=== PATIENT | female | born 1985 | race Caucasian/White ===

== ENCOUNTER 2017-02-12 16:09 | Emergency (ER) | payer BC ==
[2017-02-12] MEDS ORDERED: Ketorolac 60 MG/2 ML SDV IM ONE (16:41)
--- NOTE | 2017-02-12 17:17 | EDM.PDOC ---
ED HPI LOWER BACK PAIN/INJURY - General Chief Complaint: Back Pain or Injury Stated Complaint: BACK PAIN Time Seen by Provider: 02/12/17 16:09 Source of Information: Reports: Patient History Limitations: Reports: No limitations - History of Present Illness INITIAL COMMENTS - FREE TEXT/NARRATIVE: History of present illness: [31-year-old female presenting with complaints of mid back pain radiating down into her lower back and bilateral legs. Patient indicates that she has had this pain before, and that in fact it comes and goes seemingly for no reason. Patient indicates that she gets to where it is hard for her to bend or do her ADLs. Patient denies any impotence for exacerbations indicating that there has never been any trauma to her knowledge. Patient denies any loss of continence or retention of bowel or bladder with this pain; at any time including this event.] Review of systems: As per history of present illness and below otherwise all systems reviewed and negative. Past medical history: As per history of present illness and as reviewed below otherwise noncontributory. Surgical history: As per history of present illness and as reviewed below otherwise noncontributory. Social history: No reported history of drug or alcohol abuse. Family history: As per history of present illness and as reviewed below otherwise noncontributory. Physical exam: HEENT: Atraumatic, normocephalic, pupils reactive, negative for conjunctival pallor or scleral icterus, mucous membranes moist, throat clear, neck supple, nontender, trachea midline. Lungs: Clear to auscultation, breath sounds equal bilaterally, chest nontender. Heart: S1S2, regular, negative for clicks, rubs, or JVD. Abdomen: Soft, nondistended, nontender. Negative for masses or hepatosplenomegaly. Negative for costovertebral tenderness. Pelvis: Stable nontender. Genitourinary: Deferred. Rectal: Deferred. Extremities: Atraumatic, negative for cords or calf pain. Neurovascular unremarkable. Neuro: Awake, alert, oriented. Cranial nerves II through XII unremarkable. Cerebellum unremarkable. Motor and sensory unremarkable throughout. Exam nonfocal. Global assessment is benign inclusive of point tenderness save for subjective complaints as noted in history of present illness. Patient laying on gurney and able to move bilateral lower extremities on command with equal force. X-ray negative for acute bony abnormality Diagnostics: [X-ray lumbar spine] Therapeutics: [Toradol 60 mg IM] Impression: [Back pain] Plan: [Muscle relaxers, OTC NSAIDs] Definitive disposition and diagnosis as appropriate pending reevaluation and review of above. - Related Data Allergies/ADRs: Allergies Allergy/AdvReac Type Severity Reaction Status Date / Time No Known Allergies Allergy Verified 02/12/17 16:12 Home Meds: Home Meds Gabapentin [Neurontin] 300 mg PO BID 02/15/15 [History] DULoxetine HCl [Cymbalta] 120 mg PO DAILY 06/11/15 [History] Hydrochlorothiazide 50 mg PO DAILY 06/11/15 [History] Lisinopril 30 mg PO DAILY 06/11/15 [History] Eluxadoline [Viberzi] 75 mg PO BID 03/06/16 [History] atorvaSTATin [Lipitor] 20 mg PO BEDTIME 03/06/16 [History] Past Medical History HEENT History: Reports: Other (see below) Other HEENT History: lazy eye Cardiovascular History: Reports: High cholesterol, Hypertension Gastrointestinal History: Reports: Irritable bowel syndrome 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: Polycystic Ovaries Musculoskeletal History: Reports: Back pain, chronic Psychiatric History: Reports: Anxiety, Depression Endocrine/Metabolic History: Reports: Obesity/BMI 30+ - Infectious Disease History Infectious Disease History: Reports: Chicken pox - Past Surgical History HEENT Surgical History: Reports: None Cardiovascular Surgical History: Reports: None GI Surgical History: Reports: Cholecystectomy Social & Family History - Family History Family Medical History: Noncontributory - Tobacco Use Smoking Status *Q: Never Smoker Second Hand Smoke Exposure: Yes - Caffeine Use Caffeine Use: Reports: None Caffeine Use Comment: 3 drinks/day - Alcohol Use Days Per Week of Alcohol Use: 0 - Recreational Drug Use Recreational Drug Use: No ED ROS GENERAL - Review of Systems Review Of Systems: See Below (History of present illness) ED EXAM,LOWER BACK PAIN/INJURY - Physical Exam Exam: See Below (See history of present illness) Course - Vital Signs Last Recorded V/S: Last Vital Signs Temp 36.1 C 02/12/17 16:15 Pulse 107 H 02/12/17 16:15 Resp 20 02/12/17 16:15 BP 105/73 02/12/17 16:15 Pulse Ox 99 02/12/17 16:15 - Orders/Labs/Meds Orders: Active Orders 24 hr Category Date Time Status Lumbar Spine 2 or 3V [CR] Stat Exams 02/12/17 16:41 Taken Meds: Medications Discontinued Medications Generic Name Dose Route Start Last Admin Trade Name Ron PRN Reason Stop Dose Admin Ketorolac Tromethamine 60 mg 02/12/17 16:41 02/12/17 16:50 Toradol IM 02/12/17 16:42 60 mg ONETIME ONE Administration Departure - Departure Time of Disposition: 17:50 Disposition: Home, Self-Care 01 Condition: good Clinical Impression: Back ache Qualifiers: Back pain location: low back pain Chronicity: acute Back pain laterality: right Sciatica presence: without sciatica Qualified Code(s): M54.5 - Low back pain Forms: ED Department Discharge, Refusal of Care AMA Additional Instructions: The following information is given to patients seen in the emergency department who are being discharged to home. This information is to outline your options for follow-up care. We provide all patients seen in our emergency department with a follow-up referral. The need for follow-up, as well as the timing and circumstances, are variable depending upon the specifics of your emergency department visit. If you don't have a primary care physician on staff, we will provide you with a referral. We always advise you to contact your personal physician following an emergency department visit to inform them of the circumstance of the visit and for follow-up with them and/or the need for any referrals to a consulting specialist. The emergency department will also refer you to a specialist when appropriate. This referral assures that you have the opportunity for follow-up care with a specialist. All of these measure are taken in an effort to provide you with optimal care, which includes your follow-up. Under all circumstances we always encourage you to contact your private physician who remains a resource for coordinating your care. When calling for follow-up care, please make the office aware that this follow-up is from your recent emergency room visit. If for any reason you are refused follow-up, please contact the [facility] Emergency Department at and asked to speak to the emergency department charge nurse. Take Medication as directed Followup PCP in 1-2 days Return to ED as needed as discussed - My Orders Last 24 Hours: My Active Orders 02/12/17 16:41 Lumbar Spine 2 or 3V [CR] Stat - Assessment/Plan Last 24 Hours: My Active Orders 02/12/17 16:41 Lumbar Spine 2 or 3V [CR] Stat
[2017-02-12 18:44] VITALS: BP 137/73
--- NOTE | 2017-02-13 18:18 | CR ---
EXAM DATE: 02/12/17 PATIENT'S AGE: 31 Patient: CHRISTOPH VALDEZ Facility: [place], [place] Site . Site : 1985 Study: XRay Spine Lumbar [id number]/[id number] 5:18:18 PM Ordering Physician: Doctor Lu Final Report: INDICATION: Low back pain throughout the lumbar spine. Comparison: Lumbar spine on 09/24/2016. Findings: The 5 lumbar type vertebral bodies. Vertebral bodies are normal in height and alignment. The pedicles, transverse processes, and spinous processes are intact. Mild disc space narrowing at L4-L5. Disk spaces otherwise maintained. Impression: 1. No acute bony abnormality. 2. Mild disc space narrowing at L4-L5. Dictated by Diego Gunn MD @ Feb 12 2017 5:22PM (Electronic Signature) Report Signed by Proxy. TAHMINA
== END 2017-02-12 18:22 | disposition home or self-care (01) ==
LOC: MW.ED 16:09
DX: M54.5 Low back pain (principal); E78.00 Pure hypercholesterolemia, unspecified; I10 Essential (primary) hypertension; Z98.890 Other specified postprocedural states; E66.9 Obesity, unspecified
CPT/HCPCS: 72100; 96372; 99283; J1885

== ENCOUNTER 2019-11-07 15:36 | Emergency (ER) | payer BC ==
[2019-11-07 16:00] VITALS: BP 136/76; PULSE 107
--- NOTE | 2019-11-07 16:08 | EDM.PDOC ---
ED HPI GENERAL MEDICAL PROBLEM - General Chief Complaint: ENT Problem Stated Complaint: tooth pain Time Seen by Provider: 11/07/19 16:01 Source of Information: Reports: Patient History Limitations: Reports: No Limitations - History of Present Illness INITIAL COMMENTS - FREE TEXT/NARRATIVE: HISTORY AND PHYSICAL: History of present illness: Patient is a 34-year-old female presents to the ED with complaint of right face swelling. Patient states she was eating a chip yesterday and it cut the inside of her mouth and she thinks it is infected. She also notes having a right upper molar that is bothering her. She called her dentist and is scheduled to see them next week. She denies fevers, chills, trismus, nausea, vomiting, difficulty swallowing or breathing. Review of systems: As per history of present illness and below otherwise all systems reviewed and negative. Past medical history: As per history of present illness and as reviewed below otherwise noncontributory. Surgical history: As per history of present illness and as reviewed below otherwise noncontributory. Social history: No reported history of drug or alcohol abuse. Family history: As per history of present illness and as reviewed below otherwise noncontributory. Physical exam: General: Patient sitting comfortably in no acute distress and nontoxic appearing HEENT: No obvious swelling appreciated. Tooth #15 tender to percussion with adjacent gum swelling. Atraumatic, normocephalic, pupils reactive, negative for conjunctival pallor or scleral icterus, mucous membranes moist, throat clear, neck supple, nontender, trachea midline. No meningeal signs. Lungs: Clear to auscultation, breath sounds equal bilaterally, chest nontender. Heart: S1S2, regular, negative for clicks, rubs, or overt murmur. Abdomen: Soft, nondistended, nontender. Negative for masses or hepatosplenomegaly. Negative for costovertebral tenderness. No rigidity, rebound , guarding. Pelvis: Stable nontender. Genitourinary: Deferred. Rectal: Deferred. Extremities: Atraumatic, negative for cords or calf pain. Neurovascular unremarkable. Neuro: Awake, alert, oriented. Cranial nerves II through XII unremarkable. Cerebellum unremarkable. Motor and sensory unremarkable throughout. Exam nonfocal. Notes: Diagnostics: none Therapeutics: declined dental balls Prescriptions: Augmentin Impression: Dentalgia, dental infection Plan: Take antibiotic as instructed Follow up with dentist Return to ED as needed as discussed Definitive disposition and diagnosis as appropriate pending reevaluation and review of above. Mouth Pain Score (Numeric/FACES): 8 - Related Data Allergies Allergy/AdvReac Type Severity Reaction Status Date / Time No Known Allergies Allergy Verified 11/07/19 15:52 Home Meds: Home Meds Gabapentin [Neurontin] 300 mg PO BID 02/15/15 [History] DULoxetine HCl [Cymbalta] 120 mg PO DAILY 06/11/15 [History] Lisinopril 30 mg PO DAILY 06/11/15 [History] hydroCHLOROthiazide [Hydrochlorothiazide] 50 mg PO DAILY 06/11/15 [History] Eluxadoline [Viberzi] 75 mg PO BID 03/06/16 [History] atorvaSTATin [Lipitor] 20 mg PO BEDTIME 03/06/16 [History] Meloxicam 7.5 mg PO BID #30 tablet 02/12/17 [Rx] Orphenadrine [Norflex] 100 mg PO BID #28 tab.er 02/12/17 [Rx] Amoxicillin/Potassium Clav [Augmentin 875-125 Tablet] 1 each PO BID 7 Days #14 tablet 11/07/19 [Rx] Past Medical History HEENT History: Reports: Other (See Below) Other HEENT History: lazy eye Cardiovascular History: Reports: High Cholesterol, Hypertension Gastrointestinal History: Reports: Irritable 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: 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 Musculoskeletal History: Reports: Back Pain, Chronic Psychiatric History: Reports: Anxiety, Depression Endocrine/Metabolic History: Reports: Obesity/BMI 30+ - Infectious Disease History Infectious Disease History: Reports: Chicken Pox - Past Surgical History HEENT Surgical History: Reports: None Cardiovascular Surgical History: Reports: None GI Surgical History: Reports: Cholecystectomy Social & Family History - Family History Family Medical History: Noncontributory - Caffeine Use Caffeine Use: Reports: None Caffeine Use Comment: 3 drinks/day ED ROS ENT - Review of Systems Review Of Systems: Comprehensive ROS is negative, except as noted in HPI. ED EXAM, ENT - Physical Exam Exam: See Below (see dictation) Course - Vital Signs Last Recorded V/S: Last Vital Signs Temp 96.8 F 11/07/19 15:57 Pulse 107 H 11/07/19 15:57 Resp 18 11/07/19 15:57 BP 136/76 11/07/19 15:57 Pulse Ox 94 L 11/07/19 15:57 Departure - Departure Time of Disposition: 16:03 Disposition: Home, Self-Care 01 Condition: Good Clinical Impression: Dentalgia, Dental infection - Discharge Information Referrals: Sharri Bah NP [Primary Care Provider] - Additional Instructions: The following information is given to patients seen in the emergency department who are being discharged to home. This information is to outline your options for follow-up care. We provide all patients seen in our emergency department with a follow-up referral. The need for follow-up, as well as the timing and circumstances, are variable depending upon the specifics of your emergency department visit. If you don't have a primary care physician on staff, we will provide you with a referral. We always advise you to contact your personal physician following an emergency department visit to inform them of the circumstance of the visit and for follow-up with them and/or the need for any referrals to a consulting specialist. The emergency department will also refer you to a specialist when appropriate. This referral assures that you have the opportunity for follow-up care with a specialist. All of these measure are taken in an effort to provide you with optimal care, which includes your follow-up. Under all circumstances we always encourage you to contact your private physician who remains a resource for coordinating your care. When calling for follow-up care, please make the office aware that this follow-up is from your recent emergency room visit. If for any reason you are refused follow-up, please contact the [facility] Emergency Department at and asked to speak to the emergency department charge nurse. [facility] [address] [place] [id number] [id number] Take antibiotic as instructed Follow up with dentist Return to ED as needed as discussed Sepsis Event Note - Evaluation Sepsis Screening Result: No Definite Risk - Focused Exam Vital Signs: Vital Signs Temp Pulse Resp BP Pulse Ox 11/07/19 15:57 96.8 F 107 H 18 136/76 94 L Date Exam was Performed: 11/07/19 Time Exam was Performed: 16:00
== END 2019-11-07 16:23 | disposition home or self-care (01) ==
LOC: MW.ED 15:36
DX: K04.7 Periapical abscess without sinus (principal); I10 Essential (primary) hypertension; E66.9 Obesity, unspecified; F41.9 Anxiety disorder, unspecified; F32.9 Major depressive disorder, single episode, unspecified; Z79.899 Other long term (current) drug therapy; Z90.49 Acquired absence of other specified parts of digestive tract
CPT/HCPCS: 99283